=== PATIENT | male | born 1945 | race Caucasian/White ===

== ENCOUNTER 2019-09-12 23:33 | Emergency (ER) | payer MEDICARE, BC ==
[~2019-09-12] VITALS: Ht 182.9 cm; Wt 84.1 kg
[2019-09-12] MEDS ORDERED: aspirin 81mg tab.chew PO ONE (23:35)
[2019-09-12] MEDS ORDERED: LIDOcaine Viscous 15ml cup MM ONE (23:55)
[2019-09-12] MEDS ORDERED: mag hydrox/Alum hydrox/simeth 30ml oral suspension PO ONE (23:55)
[2019-09-13 00:48] LABS: D-DIMER 0.34 MG/L FEU (0-0.50)
[2019-09-13 00:52] LABS: ALANINE AMINOTRANSFERASE 26 U/L (12-78); ALBUMIN 3.5 G/DL (3.4-5.0); ALBUMIN/GLOBULIN RATIO 0.9 (1.1-1.5); ALKALINE PHOSPHATASE 76 IU/L (46-116); ANION GAP 4 (8-16); ASPARTATE AMINO TRANSFERASE 22 U/L (10-37); BILIRUBIN,TOTAL 0.4 MG/DL (0.1-1.0); BLOOD UREA NITROGEN 23 MG/DL (7-18); BUN/CREATININE RATIO 19.5 (5.4-32.0); CALCIUM 8.9 MG/DL (8.5-10.1); CHLORIDE 106 MMOL/L (99-107); CREATININE 1.18 MG/DL (0.60-1.10); GLUCOSE 112 MG/DL (70-104); POTASSIUM 3.8 MMOL/L (3.5-5.1); SODIUM 143 MMOL/L (135-145); TOTAL CARBON DIOXIDE 33.4 MMOL/L (24-32); TOTAL PROTEIN 7.2 G/DL (6.4-8.2); eGFR 61 ML/MIN
[2019-09-13 00:53] LABS: BASOPHILS # (AUTO) 0.1 X10'3 (0-0.2); EOSINOPHILS # (AUTO) 0.3 X10'3 (0-0.9); EOSINOPHILS % (AUTO) 2.7 % (0-6); HEMATOCRIT 46.6 % (42.0-52.0); HEMOGLOBIN 15.8 g/dl (14.0-17.9); LYMPHOCYTES # (AUTO) 1.1 X10'3 (1.1-4.8); LYMPHOCYTES % (AUTO) 11.5 % (21-51); MEAN CORPUSCULAR HEMOGLOBIN 30.8 PG (27.0-31.0); MEAN CORPUSCULAR VOLUME 90.5 FL (78-98); MONOCYTES # (AUTO) 0.7 X10'3 (0-0.9); MONOCYTES % (AUTO) 7.9 % (2-12); NEUTROPHILS # (AUTO) 7.2 X10'3 (1.8-7.7); NEUTROPHILS % (AUTO) 76.9 % (42-75); PLATELET COUNT 212 X10'3 (140-440); RED BLOOD COUNT 5.14 X10'6 (4.70-6.10); RED CELL DISTRIBUTION WIDTH 13.4 % (11.5-14.5); WHITE BLOOD COUNT 9.4 X10'3 (4.5-11.0)
[2019-09-13 00:58] LABS: MAGNESIUM 2.2 MG/DL (1.5-2.4)
[2019-09-13] MEDS ORDERED: ibuprofen 200mg tablet PO ONE (01:10)
[2019-09-13 01:24] VITALS: BP 142/89
== END 2019-09-13 01:26 | disposition home or self-care (01) ==
LOC: ER 23:33
DX: R09.1 Pleurisy (principal); R07.81 Pleurodynia; K21.9 Gastro-esophageal reflux disease without esophagitis
CPT/HCPCS: 36415; 71045; 80053; 83735; 83880; 84484; 85025; 85379; 93005; 99284

== ENCOUNTER 2022-06-08 10:51 | Emergency (ER) | payer BC, MEDICARE ==
[~2022-06-08] VITALS: Ht 182.9 cm; Wt 85.0 kg
[2022-06-08 10:59] VITALS: BP 110/72
[2022-06-08] MEDS ORDERED: dexamethasone sod phosphate 10mg/ml inj PO STA (11:14)
[2022-06-08] MEDS ORDERED: LIDOcaine Viscous 15ml cup MM STA (11:14)
[2022-06-08] MEDS ORDERED: LIDO20SO16 PO ×3 (12:25→12:43)
== END 2022-06-08 13:04 | disposition home or self-care (01) ==
LOC: ER 10:52
DX: U07.1 COVID-19 (principal); K21.9 Gastro-esophageal reflux disease without esophagitis
CPT/HCPCS: 99283; J1100

== ENCOUNTER 2022-10-12 12:59 | Emergency (ER) | payer MEDICARE ==
[~2022-10-12] VITALS: Ht 182.9 cm; Wt 69.5 kg
[~2022-10-12 12:59] MED LIST: LIDO20SO16 PO
[2022-10-12 13:04] VITALS: BP 196/86
[2022-10-12] MEDS ORDERED: LIDOcaine 1% 30ml preserv. free vial IJ ONE (14:10)
[2022-10-12] MEDS ORDERED: TETanus/Pertussis (Acell)/Diphther VAC/PF (Tdap-Adult) 0.5ml syringe IMVAC ONE (14:10)
[2022-10-12] MEDS ORDERED: CEPH250T PO (15:55)
[2022-10-12] MEDS ORDERED: TRAM50TA2 PO (15:55)
== END 2022-10-12 16:35 | disposition home or self-care (01) ==
LOC: ER 12:59
DX: S61.211A Laceration without foreign body of left index finger without damage to nail, initial encounter (principal); K21.9 Gastro-esophageal reflux disease without esophagitis; X58.XXXA Exposure to other specified factors, initial encounter; Y93.89 Activity, other specified; Y92.89 Other specified places as the place of occurrence of the external cause; Y99.8 Other external cause status
CPT/HCPCS: 12002; 73140; 90471; 90715; 99284; A6222; J7030; A6258; A6449